=== PATIENT | female | born 1995 | race Two or more races ===

== ENCOUNTER 2024-08-23 01:27 | Inpatient (IN) | payer BC, SELFPAY ==
[2024-08-23] VITALS (90 sets, daily range): BP systolic 102–142; BP diastolic 60–87; PULSE 59–108; RESP 16–98; TEMP 36.5–37.3; O2SAT 87–100; BMI 30.2
[2024-08-23] MEDS: RINGERS LACTATED 1000 ML 1,000 ML 100 ML IV ×3 (02:55→04:03)
[2024-08-23 03:09] LABS: Basophils # (Auto) 0.1 Thou/mm3 (0.0-0.2); Basophils % (Auto) 1 % (0-2.5); Eosinophils # (Auto) 0.3 Thou/mm3 (0.0-0.5); Eosinophils % (Auto) 2 % (0-10); Hematocrit 34.3 % (36.0-46.0); Hemoglobin 11.8 g/dL (12.0-16.0); Immature Granulocytes % (Auto) 0 % (0-0); Immature Granulocytes Auto 0.05 Thou/mm3 (0.00-0.00); Lymphocytes # (Auto) 3.6 Thou/mm3 (1.0-4.8); Lymphocytes % (Auto) 24 % (10-50); Mean Corpuscular HGB Conc 34.4 g/dl (31.0-37.0); Mean Corpuscular Hemoglobin 29.9 pg (25.0-35.0); Mean Corpuscular Volume 87 fL (80-100); Monocytes # (Auto) 0.9 Thou/mm3 (0.0-0.8); Monocytes % (Auto) 6 % (0-12); Neutrophils % (Auto) 67 % (37-80); Nucleated Red Blood Cell % 0 /100 WBC (0); Platelet Count 362 Thou/mm3 (140-440); Red Blood Count 3.94 Miln/mm3 (4.00-5.20); White Blood Count 14.8 Thou/mm3 (3.6-11.0)
[2024-08-23 03:45] LABS: Syphilis Nonreactive (Nonreactive)
[2024-08-23] MEDS: MINERAL OIL 30 ML UDC TOP (06:50)
[2024-08-23] MEDS: TRANEXAMIC ACID 1,000 MG IVPB 1,000 MG/100 ML BAG 200 MG IV (06:50)
[2024-08-23] MEDS: MISOPROSTOL 200 mCg TABLET 800 MCG PR (06:50)
[2024-08-23] MEDS: OXYTOCIN INJ 10 UNIT/ML VIAL IM (06:51)
[2024-08-23] MEDS: OXYTOCIN in NS 20 units 20 UNIT/1,000 ML BAG 125 UNIT IV (06:55)
--- NOTE | 2024-08-23 07:35 | ESHP_ITS ---
Documentation for date of: 08/23/24 OB Labor/Induct. HPI History of Present Illness Chief complaint: labor : 3 Para: 1 Term pregnancies: 1 pregnancies: 0 Living children: 1 History of Abortions: Spontaneous and Elective: 0 History of Vaginal deliveries: 1 History of sections: No History of : No Date of last menstrual period: 11/26/23 SHELLI: 08/31/24 Gestational Age (weeks): 38 Gestational Age (days): 6 Gestational age based on last menstrual period: 38 History of present illness: This is a 29-year-old 3 para 1 admit to labor and delivery with complaints of contractions since 740 in the evening. Patient is been followed at [facility]. First visit 15 weeks. Last period November for 2023. Estimated due date August 31, 2024. Patient has uneventful . She had poor dates she has had several anatomy scans her NIPT and carrier screens were negative. She is A+, antibody screen negative, RPR nonreactive, rubella immune, hepatitis B negative, hep C negative, HIV negative, GC and Chlamydia were negative. GBS negative. She had a normal 1 hour GTT denies social habits. Denies surgery. Denies chronic illness History of Present Dating criteria: LMP confirmed by 2nd trimester US Adequate Care: Yes Ultrasounds: normal mid trimester US Obstetrical complications: none Medical complications: none Labs Labs: Negative: Hepatitis B, HIV, Chlamydia and Gonorrhea Review of Systems Review of Systems Systems Reviewed: All systems reviewed, normal except as documented Past Medical History Surgical History SURGICAL: Negative Section Meds Home Medications and Allergies Home Medications ?Medication ?Instructions ?Recorded ?Confirmed ?Type vit no.95-ferrous 1 tab PO QDAY 08/23/24 08/23/24 History fumarate 28 mg-folic acid 800 mcg tablet () Allergies Allergy/AdvReac Type Severity Reaction Status Date / Time Penicillins Allergy Intermediate Hives Verified 08/23/24 01:55 aspirin Allergy Mild Swelling Verified 08/23/24 01:56 of the Eye ibuprofen Allergy Mild Swelling Verified 08/23/24 01:56 of the Eye OB Exam Physical Exam Vital signs: Temp Pulse Resp BP Pulse Ox 99.1 F 91 18 125/67 87 L 08/23/24 01:44 08/23/24 07:23 08/23/24 01:44 08/23/24 07:23 08/23/24 06:43 Narrative: Vital signs are stable afebrile. Normal heart rate and rhythm. Lungs clear no wheezes. Gravid abdomen. Gynecoid pelvis. Estimated weight 6 and half pounds. Vaginal exam on admission was 80%, 3, -1. Vertex. heart rate category 1 with accelerations and moderate variability and regular contractions Detailed Labor and Delivery Exam Dilation (cm): 3 Effacement (%): 90 Cervix position: mid station: -1 Consistency: soft Presentation: Vertex Cervical ripeness score: 8 Membranes: intact Baseline heart rate: 135 monitor accelerations: 15x15 monitor decelerations: None long term care social worker variability: Moderate (11-25) Contraction frequency (min): 3-4 Contraction duration (sec): 30 Tachysystole: No Contraction intensity: Moderate OB Results Labs 08/23/24 02:52 Labs: Short CBC 08/23/24 Range/Units 02:52 WBC 14.8 H (3.6-11.0) Thou/mm3 Hgb 11.8 L (12.0-16.0) g/dL Hct 34.3 L (36.0-46.0) % Plt Count 362 (140-440) Thou/mm3 Impressions Impression: labor OB Assessment & Plan Assessment and Plan (1) Normal labor and delivery: Status: Acute Additional Plan Induction method: none Plan: anticipate NVD and consult MD ch
--- NOTE | 2024-08-23 07:42 | PD.LDDELS ---
Data (Lin) Data Hx Section: No : 2 Para: 1 Term: 1 : 0 : 0 Delivery Data (Lin) Labor Data Stimulated/Augmented: No Induction: No ROM Date: 08/23/24 ROM Time: 02:25 Rupture Type: AROM Amniotic Fluid: Clear Delivery Data EDC: 08/31/24 EDC calculated by:: ultrasound Labor Onset Stage 1 Date: 08/23/24 Labor Onset Stage 1 Time: 03:00 Labor Onset Stage 2 Date: 08/23/24 Labor Onset Stage 2 Time: 06:28 Delivery Date: 08/23/24 Delivery Time: 06:45 Gestational age (weeks): 38 Gestational age (days): 6 Placenta Delivery Date: 08/23/24 Placenta Delivery Time: 06:51 Delivered by: Mignon Lind Delivery nurse: Laurita Nagy Other staff at delivery: Nursery Nurse Other staff at delivery: Mallory Taylor Delivery Method Delivery: Vaginal Delivery Type: Spontaneous Presentation: Vertex Position: OA Anesthesia Type Primary Anesthesia: Epidural Delivery Room Medications Post Delivery Medications: Tocolytics and Cytotec Placenta Placenta Delivery: Spontaneous (inspected, intact) Placenta Sent for Examination: No Cord Sample: Cord Blood Obtained Episiotomy Episiotomy: None (intact) EBL Estimated blood loss (ml): 300 Umbilical Cord Umbilical Vessels: 3 Nuchal Cord: None Body Cord: None Data (Lin) [place] Data Infant Gender: Female Infant Weight Grams: 3015 1 Minute Total: 8 5 Minute Total: 9
[2024-08-23] MEDS: ACETAMINOPHEN 325 MG TABLET 650 MG PO ×2 (09:01→20:47)
[2024-08-23] MEDS: DOCUSATE SOD 100 MG CAPSULE PO ×2 (09:01→20:47)
--- NOTE | 2024-08-23 10:10 | PC.NURSE ---
0955 ASSUMED CARE OF PATIENT. AWAKE AND ALERT. NO DISTRESS VOICED OR OBSERVED.
[2024-08-23] MEDS: HYDROcodone/APAP 5/325 TABLET 1 TAB PO (13:17)
[2024-08-23 17:00] LABS: Basophils % (Auto) 0 % (0-2.5); Eosinophils % (Auto) 0 % (0-10); Hemoglobin 11.3 g/dL (12.0-16.0); Immature Granulocytes % (Auto) 0 % (0-0); Immature Granulocytes Auto 0.07 Thou/mm3 (0.00-0.00); Lymphocytes # (Auto) 1.7 Thou/mm3 (1.0-4.8); Lymphocytes % (Auto) 11 % (10-50); Mean Corpuscular HGB Conc 34.2 g/dl (31.0-37.0); Mean Corpuscular Volume 88 fL (80-100); Monocytes # (Auto) 0.8 Thou/mm3 (0.0-0.8); Monocytes % (Auto) 5 % (0-12); Neutrophils # (Auto) 13.7 Thou/mm3 (1.8-7.7); Neutrophils % (Auto) 84 % (37-80); Nucleated Red Blood Cell % 0 /100 WBC (0); Platelet Count 337 Thou/mm3 (140-440); RDW Standard Deviation 43.7 fL (36.4-46.3); Red Blood Count 3.77 Miln/mm3 (4.00-5.20); White Blood Count 16.3 Thou/mm3 (3.6-11.0)
[2024-08-24 04:50] VITALS: BP 101/67; PULSE 73; RESP 18; TEMP 36.6; O2SAT 99
[2024-08-24] MEDS: ACETAMINOPHEN 325 MG TABLET 650 MG PO (04:53)
[2024-08-24] MEDS: DOCUSATE SOD 100 MG CAPSULE PO (08:54)
--- NOTE | 2024-08-24 08:54 | ESPR_ITS ---
Subjective Subjective Interval history: No complaints of pain. No dizziness. Bonding and breast-feeding Exam Vital Signs Temp Pulse Resp BP Pulse Ox O2 Del Method 97.9 F 73 18 101/67 99 Room Air 08/24/24 04:50 08/24/24 04:50 08/24/24 04:50 08/24/24 04:50 08/24/24 04:50 08/24/24 04:50 Narrative Exam Vital signs are stable afebrile. Breasts are soft. Fundus firm below the umbilicus. Perineum intact no swelling. Small lochia. Uterus well involuted. 2+ DTRs. Negative Homans' sign Objective Labs 08/23/24 16:42 Labs: Laboratory Results - last 24 hr 08/23/24 16:42 WBC 16.3 H RBC 3.77 L Hgb 11.3 L Hct 33.0 L MCV 88 MCH 30.0 MCHC 34.2 RDW Std Deviation 43.7 Plt Count 337 Neut % (Auto) 84 H Lymph % (Auto) 11 [place] % (Auto) 5 Eos % (Auto) 0 Baso % (Auto) 0 Neut # (Auto) 13.7 H Lymph # (Auto) 1.7 [place] # (Auto) 0.8 Eos # (Auto) 0.0 Baso # (Auto) 0.0 Immature Gran # (Auto) 0.07 H Absolute Nucleated RBC 0.00 Immature Gran % 0 Nucleated RBC % 0 Assessment & Plan Problem List (1) Normal labor and delivery: Status: Acute Assessment Comment Assessment comment: 24 hr pp Plan Comment Plan Comment: Discharge home with baby. Continue vitamins and iron. Tylenol ibuprofen for pain. Danger signs. Return in 3 weeks visit. Discussed ER precautions and parameters. Discussed signs and symptoms of infection. Return in 3 weeks visit Time Spent With Patient Time: Total time spent is greater than 50% in coordination of care (as documented) at patient's floor/unit and/or counseling patient:
--- NOTE | 2024-08-24 08:56 | PD.LDDS ---
DS: Providers Provider Date of admission: 08/23/24 02:39 Primary care physician: Physician No Primary/Family Admitting Provider: Luisito Bolton MD Attending Provider on Admission: Mignon Lind CNM Consults: 08/23/24 08:03 Referral Routine Comment: Attending Provider on DC: Mignon Lind CNM Discharging Provider: Mignon Lind CNM DS: Diagnosis Problem List Completed Was Problem List Reviewed/Reconciled?: Yes Summary/Hosp Course Brief History: This is a 29-year-old 3 para 1 admit to labor and delivery with complaints of contractions since 740 in the evening. [facility] First visit 15 weeks. Last period November for 2023. Estimated due date August 31, 2024. Patient has uneventful . She had poor dates she has had several anatomy scans her NIPT and carrier screens were negative. She is A+, antibody screen negative, RPR nonreactive, rubella immune, hepatitis B negative, hep C negative, HIV negative, GC and Chlamydia were negative. GBS negative. She had a normal 1 hour GTT denies social habits. Denies surgery. Denies chronic illness Peripartum Data Delivery Method: Normal Vaginal Delivery Episiotomy Description: None Laceration Description: no Time Spent with Patient Time attestation: Total time spent providing and/or coordinating discharge services: Exam Vital Signs Temp Pulse Resp BP Pulse Ox O2 Del Method 97.9 F 73 18 101/67 99 Room Air 08/24/24 04:50 08/24/24 04:50 08/24/24 04:50 08/24/24 04:50 08/24/24 04:50 08/24/24 04:50 Discharge Plan Plan Patient Disposition: HOME (Self Care) Prescriptions/Referrals Prescriptions/Med Rec: No Action PNV cmb#95-ferrous fumarate-FA [] 28 mg iron- 800 mcg tablet 1 tab PO QDAY Referrals: No Primary/Family,Physician [Primary Care Provider] - Patient/Caregiver Discharge Instructions Print Language: Persian Activity Restrictions/Additional Instructions: Discharge home with baby. Continue vitamins and iron. Tylenol ibuprofen for pain. Danger signs. Discussed ER precautions and parameters. Discussed signs symptoms of infection. Can increase fluids and rest. Return in 3 weeks visit Stand Alone Forms: Luann Award Info., Patient Portal Info Letter Discharge Order Discharge Orders: Discharge (Routine); Ordered 08/24/24 Ordered By: Mignon Lind Planned Discharge Date 08/24/24
== END 2024-08-24 12:58 | disposition home or self-care (01) | DRG 807 ==
LOC: S4SX 07:03 → S4NX 09:22
PROVIDERS: Admitting Provider Obstetrics & Gynecology; Visit Provider Advanced Practice Midwife
DX: O80 Encounter for full-term uncomplicated delivery (principal); Z37.0 Single live birth; Z3A.38 38 weeks gestation of pregnancy
CPT/HCPCS: 36415; 59409; 85025; 86780; 86850; 86900; 86901; 94762; J2590; J2795; J3010; J3490; J7120; S0191; A9270